=== PATIENT | female | born 1970 | race Caucasian/White ===

== ENCOUNTER 2017-12-18 22:20 | Emergency (ER) | payer MEDICAID, OTHER ==
[~2017-12-18] VITALS: Ht 160 cm; Wt 112.3 kg
[2017-12-19 02:00] VITALS: BP 112/68
== END 2017-12-19 02:00 | disposition home or self-care (01) ==
LOC: ER 22:20
DX: J32.9 Chronic sinusitis, unspecified (principal)
CPT/HCPCS: 71045; 99283

== ENCOUNTER 2018-03-03 02:37 | Emergency (ER) | payer OTHER ==
[~2018-03-03] VITALS: Ht 160 cm; Wt 105.0 kg
[2018-03-03 06:23] VITALS: BP 135/62
== END 2018-03-03 06:23 | disposition home or self-care (01) ==
LOC: ER 02:37
DX: L25.9 Unspecified contact dermatitis, unspecified cause (principal); F17.200 Nicotine dependence, unspecified, uncomplicated; Z98.890 Other specified postprocedural states; Z88.1 Allergy status to other antibiotic agents
CPT/HCPCS: 87070; 87430; 99283; 99284

== ENCOUNTER 2018-04-05 19:58 | Emergency (ER) | payer OTHER ==
[~2018-04-05] VITALS: Ht 160 cm; Wt 104.0 kg
[2018-04-05 23:27] VITALS: BP 149/83
== END 2018-04-05 23:27 | disposition home or self-care (01) ==
LOC: ER 19:58
DX: L53.9 Erythematous condition, unspecified (principal); R21 Rash and other nonspecific skin eruption; F17.200 Nicotine dependence, unspecified, uncomplicated; Z88.1 Allergy status to other antibiotic agents; Z98.890 Other specified postprocedural states
CPT/HCPCS: 99283

== ENCOUNTER 2018-05-12 04:28 | Emergency (ER) | payer OTHER ==
[~2018-05-12] VITALS: Ht 160 cm; Wt 103.0 kg
[2018-05-12 04:45] VITALS: BP 158/99
== END 2018-05-12 05:00 | disposition left against medical advice (07) ==
LOC: ER 04:28
DX: R10.30 Lower abdominal pain, unspecified (principal); R19.7 Diarrhea, unspecified; Z53.21 Procedure and treatment not carried out due to patient leaving prior to being seen by health care provider

== ENCOUNTER 2018-05-12 07:59 | Emergency (ER) | payer OTHER ==
[~2018-05-12] VITALS: Ht 160 cm; Wt 103.0 kg
[2018-05-12 12:00] LABS: CLARITY URINE CLEAR (CLEAR); COLOR URINE YELLOW (YELLOW); KETONES URINE NEGATIVE (NEGATIVE); LEUKOCYTE ESTERASE URINE TRACE (NEGATIVE); NITRITE URINE NEGATIVE (NEGATIVE); OCCULT BLOOD URINE 2+ (NEGATIVE); PROTEIN URINE NEGATIVE (NEGATIVE); UROBILINOGEN URINE 0.2 E.U./dL (0.2-1.0)
[2018-05-12] MEDS ORDERED: IBUPROFEN 600MG TABLET PO ONE (12:45)
[2018-05-12 14:36] VITALS: BP 157/86
== END 2018-05-12 15:24 | disposition home or self-care (01) ==
LOC: ER 12:53
DX: R10.2 Pelvic and perineal pain (principal); R21 Rash and other nonspecific skin eruption; L30.4 Erythema intertrigo; D21.9 Benign neoplasm of connective and other soft tissue, unspecified; F17.200 Nicotine dependence, unspecified, uncomplicated; Z90.49 Acquired absence of other specified parts of digestive tract; Z98.890 Other specified postprocedural states; Z88.1 Allergy status to other antibiotic agents
CPT/HCPCS: 76830; 76856; 81025; 99284